=== PATIENT | female | born 1990 | race Caucasian/White ===

== ENCOUNTER 2021-06-26 12:07 | Outpatient (CLI) | payer OTHER | END 2021-06-26 14:02 | disposition home or self-care (01) | LOC: GENOP 12:07 | DX: O47.00 False labor before 37 completed weeks of gestation, unspecified trimester (principal); Z3A.33 33 weeks gestation of pregnancy | CPT/HCPCS: G0463 ==

== ENCOUNTER 2021-07-14 22:06 | Outpatient (CLI) | payer OTHER | END 2021-07-15 00:04 | disposition home or self-care (01) | LOC: GENOP 22:06 | DX: O36.8130 Decreased fetal movements, third trimester, not applicable or unspecified (principal); Z3A.35 35 weeks gestation of pregnancy | CPT/HCPCS: 59025; 81001 ==

== ENCOUNTER 2021-07-19 15:31 | Outpatient (CLI) | payer OTHER | END 2021-07-19 17:47 | disposition home or self-care (01) | LOC: GENOP 15:31 | DX: O36.5930 Maternal care for other known or suspected poor fetal growth, third trimester, not applicable or unspecified (principal); O98.513 Other viral diseases complicating pregnancy, third trimester; U07.1 COVID-19; Z3A.36 36 weeks gestation of pregnancy | CPT/HCPCS: 59025; U0002 ==

== ENCOUNTER 2021-07-28 16:44 | Inpatient (IN) | payer BC, OTHER ==
[~2021-07-28] VITALS: Ht 160 cm; Wt 98.4 kg
[2021-07-28 18:50] LABS: HEMOGLOBIN 11.3 gm/dl (12.3-15.3); RED BLOOD COUNT 3.54 M/UL (4.00-5.10); WHITE BLOOD COUNT 9.9 K/UL (4.5-11.0)
[2021-07-30 06:24] LABS: HEMOGLOBIN 10.7 gm/dl (12.3-15.3)
== END 2021-07-31 14:05 | disposition home or self-care (01) | DRG 807 ==
LOC: GENOP 16:44 → OB 19:00
PROVIDERS: Obstetrics & Gynecology; ADMIT Obstetrics & Gynecology
PROC: 10E0XZZ Delivery of Products of Conception, External Approach (ICD-10-PCS; principal; 2021-07-29)
PROC: 10907ZC Drainage of Amniotic Fluid, Therapeutic from Products of Conception, Via Natural or Artificial Opening (ICD-10-PCS; 2021-07-29)
PROC: 3E033VJ Introduction of Other Hormone into Peripheral Vein, Percutaneous Approach (ICD-10-PCS; 2021-07-29)
PROC: 0HQ9XZZ Repair Perineum Skin, External Approach (ICD-10-PCS; 2021-07-29)
PROC: 10H07YZ Insertion of Other Device into Products of Conception, Via Natural or Artificial Opening (ICD-10-PCS; 2021-07-29)
DX: O36.5930 Maternal care for other known or suspected poor fetal growth, third trimester, not applicable or unspecified (principal); Z37.0 Single live birth; O99.344 Other mental disorders complicating childbirth; F41.9 Anxiety disorder, unspecified; Z20.822 Contact with and (suspected) exposure to COVID-19; O99.214 Obesity complicating childbirth; E66.9 Obesity, unspecified; O70.0 First degree perineal laceration during delivery; Z3A.37 37 weeks gestation of pregnancy; Z14.1 Cystic fibrosis carrier
CPT/HCPCS: 36415; 81001; 85014; 85018; 85025; J2590; J7120

== ENCOUNTER 2021-08-12 09:41 | Emergency (ER) | payer BC, OTHER ==
[2021-08-12 10:49] LABS: HEMOGLOBIN 13.2 gm/dl (12.3-15.3); RED BLOOD COUNT 4.1 M/UL (4.00-5.10); WHITE BLOOD COUNT 7.2 K/UL (4.5-11.0)
[2021-08-12 11:26] LABS: BUN/CREATININE RATIO 17 (0-10)
== END 2021-08-12 12:25 | disposition home or self-care (01) ==
LOC: ER1 09:41
PROVIDERS: Physician Assistant
DX: O99.893 Other specified diseases and conditions complicating puerperium (principal); R00.1 Bradycardia, unspecified; O99.43 Diseases of the circulatory system complicating the puerperium; I50.9 Heart failure, unspecified; Z79.899 Other long term (current) drug therapy
CPT/HCPCS: 71045; 80053; 82550; 82553; 83874; 83880; 84439; 84443; 84484; 85025; 93005; 99284